=== PATIENT | female | born 1965 | race Caucasian/White ===

== ENCOUNTER 2019-05-23 15:50 | Emergency (ER) | payer BC ==
[2019-05-23 16:52] VITALS: BP 132/60
--- NOTE | 2019-05-23 17:29 | UC ---
Skin Complaint HPI - HPI Summary HPI Summary: per associate editor: "Pt states last weekend she was doing work outside and the left 4th finger started to hurt. Then yesterday the finger started to swell and became red. " -pain started a few days ago but swelling worse yesterday. -no dc. 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 -no f/c. - History of Current Complaint Chief Complaint: UCUpperExtremity Time Seen by Provider: 05/23/19 17:13 Stated Complaint: LEFT RING FINGER CONCERN Pain Intensity: 6 - Allergy/Home Medications Allergies/Adverse Reactions: Allergies Allergy/AdvReac Type Severity Reaction Status Date / Time nitrofurantoin Allergy Rash Verified 05/23/19 16:53 [From Macrobid] Sulfa (Sulfonamide Allergy Hives Verified 05/23/19 16:52 Antibiotics) PMH/Surg Hx/FS Hx/Imm Hx Previously Healthy: Yes - Surgical History Surgery Procedure, Year, and Place: . tubal ligation. D&C - Family History Known Family History: Positive: Non-Contributory - Social History Alcohol Use: Occasionally Substance Use Type: None Smoking Status (MU): Never Smoked Tobacco Review of Systems All Other Systems Reviewed And Are Negative: Yes Constitutional: Positive: Negative Skin: Positive: Rash Eyes: Positive: Negative ENT: Positive: Negative Respiratory: Positive: Negative Cardiovascular: Positive: Negative Gastrointestinal: Positive: Negative Genitourinary: Positive: Negative Motor: Positive: Negative Neurovascular: Positive: Negative Musculoskeletal: Positive: Negative Neurological: Positive: Negative Psychological: Positive: Negative Is Patient Immunocompromised?: No Physical Exam Triage Information Reviewed: Yes Appearance: Well-Appearing, No Pain Distress, Well-Nourished - very pleasant Vital Signs: Initial Vital Signs Temp 99.1 F 05/23/19 16:47 Pulse 55 05/23/19 16:47 Resp 16 05/23/19 16:47 BP 132/60 05/23/19 16:47 Pulse Ox 100 05/23/19 16:47 Eye Exam: Normal Respiratory Exam: Normal Respiratory: Positive: Lungs clear, Normal breath sounds, No respiratory distress Cardiovascular Exam: Normal Cardiovascular: Positive: RRR, Pulses Normal, Brisk Capillary Refill Abdominal Exam: Normal Musculoskeletal Exam: Normal Neurological Exam: Normal Psychological Exam: Normal Skin: Positive: Other - left distal 4th finger w/ tneder erythema at distal end and proximal to nail. no e/o ingown nail. no dc. no obvious vessicles. Course/Dx - Course Course Of Treatment: left 4th finger cellulitis vs herpetic jazmin -will err on side of cellulitis and treat w/ augmentin x 10 and probiotic -jazmin is slef limited and has been too long to treat w/ anti-viral -I discussed this with pt as possible dx and she is appreciative and undrestands rationale. - Differential Diagnoses - Skin Complaint Differential Diagnoses: Cellulitis, Contact Dermatitis, Other - herpetic jazmin - Diagnoses Provider Diagnosis: Cellulitis Discharge ED - Sign-Out/Discharge Documenting (check all that apply): Patient Departure All imaging exams completed and their final reports reviewed: No Studies - Discharge Plan Condition: Stable Disposition: HOME Prescriptions: Amoxicillin/Clavulanate TAB* [Augmentin TAB 875*] 875 mg PO BID #20 tab Patient Education Materials: Cellulitis (ED) Referrals: Anthony Davison MD [Primary Care Provider] - 5 Days Additional Instructions: Make sure to take a probiotic daily while on antibiotics to help prevent a potential complication of antibiotic use called c diff. Some well known brands that can be found OTC are florastor, align and My Own Med. Make sure to complete the entire prescription unless advised otherwise by your health care provider. -we talked about the possibility of your symptoms being due to something called herpetic jazmin that would resolve on it's own in the next couple of weeks regardless. But we discussed erring on the side of bacterial infection possibly due to gardening. Augmentin is a good antibiotic for such infections. ----- - Billing Disposition and Condition Condition: STABLE Disposition: Home
== END 2019-05-23 17:48 | disposition home or self-care (01) ==
LOC: UCCORT 15:50
DX: L03.90 Cellulitis, unspecified (principal); Z88.1 Allergy status to other antibiotic agents; Z88.2 Allergy status to sulfonamides
CPT/HCPCS: 99212; G0463